=== PATIENT | male | born 1960 | race Caucasian/White ===

== ENCOUNTER 2019-04-30 11:06 | Emergency (ER) | payer OTHER ==
[~2019-04-30] VITALS: Ht 180.3 cm; Wt 136.1 kg
[~2019-04-30 11:06] MED LIST: ACETAMINOPHEN650 M5 PO; ADDERALL 20 MG20 M1 PO; ALLI PO; ASA5UEC PO; ATENOLOL 100MG100 M2 PO; ATENOLOL 25 MG25 M1 PO; AUGMENTIN 875-1 EACH PO; CENTRUM SILVER1 EAC1 PO; DEPAKOTE ER500 MG PO; FLEXERIL PO; NORCO 5-325 TA1 EACH PO; NORVASC 2.5 MG2.5 MG PO; NORVASC5 MG PO; OCUVITE EXTRA1 EACH PO; OXYMETAZOLINE NS; VICODIN 5-5001 EACH PO; ZPAK PO
[2019-04-30 11:42] LABS: ABSOLUTE NEUTROPHILS 6.7 thou/uL (1.4-8.2); BASOPHILS 0.8 % (0.0-2.0); EOSINOPHILS 1.5 % (0.0-3.0); HEMATOCRIT 49.9 % (42.0-52.0); HEMOGLOBIN 17.2 gm/dL (14.0-18.0); LYMPHOCYTES 14.8 % (24.0-44.0); MCH 31.4 pg (26.0-34.0); MCHC 34.6 g/dL (28.0-37.0); MCV 90.8 fL (80.0-100.0); MONOCYTES 9.7 % (1.0-8.0); PLATELET COUNT 246 thou/uL (150-400); POLYS 73.2 % (36.0-66.0); RDW 12.8 % (10.5-14.5); WBC 9.1 thou/uL (4.0-11.0)
[2019-04-30 11:49] LABS: CREATININE 1.4 mg/dL (0.7-1.3); POTASSIUM 3.8 mmol/L (3.5-5.1)
[2019-04-30 11:55] LABS: ALBUMIN 3.9 g/dL (3.4-5.0); TOTAL BILIRUBIN 0.7 mg/dL (<0.1-1.0); TOTAL PROTEIN 7.7 g/dL (6.4-8.2)
[2019-04-30] MEDS ORDERED: BLACK SEED OIL (12:23)
[2019-04-30] MEDS ORDERED: LIPITOR 10 MG10 M1 PO (12:23)
[2019-04-30 12:37] LABS: URINE BLOOD NEGATIVE (Negative); URINE CLARITY CLEAR; URINE COLOR YELLOW; URINE GLUCOSE-RANDOM* NEGATIVE (Negative); URINE KETONES NEGATIVE (Negative); URINE LEUKOCYTES-REFLEX NEGATIVE (Negative); URINE NITRITE-REFLEX NEGATIVE (Negative); URINE PROTEIN (DIPSTICK) TRACE (Negative); URINE SPECIFIC GRAVITY 1.025 (1.005-1.035); URINE UROBILINOGEN 0.2 E.U./dl (0.2-1.0)
[2019-04-30 12:52] LABS: ICTOTEST (BILI CONFIRMATORY) Negative (Negative); URINE BILIRUBIN NEGATIVE (Negative)
[2019-04-30 13:27] VITALS: BP 121/76
--- NOTE | 2019-05-01 08:24 | EKG ---
[address] [address] [place] [address] ELECTROCARDIOGRAM REPORT Name: TAE BURK Room #: DEP Karis#: [id number] Admission: 04/30/19 Attend Phys: Discharge: 04/30/19 Date of : 60 Report #: [id number] THIS REPORT FOR: //name// [facility] ED Test Date: 2019-04-30 Test Time: 12:02:44 Pat Name: TAE BURK Department: Room: Gender: Harnessmaker: [facility] : 1960 Requested By: Guerda Mckee Order Number: [id number] MD: Ray Nichols Measurements Intervals [place] Rate: 86 P: 59 [place]: 164 QRS: 29 QRSD: 83 T: 28 QT: 359 QTc: 430 Interpretive Statements Sinus rhythm Normal tracing Compared to ECG 04/01/2014 13:02:30 No significant changes Electronically Signed On 05-01-2019 8:23:37 BENCH MOVER by Ray Nichols [email or web address] <ELECTRONICALLY SIGNED> By: Ray Nichols MD, [facility] 05/01/19 0823 1202 1202 Ray Nichols MD, FACC /EPI
== END 2019-04-30 13:28 | disposition home or self-care (01) ==
LOC: ER 11:06
PROVIDERS: Physician Assistant
DX: R19.7 Diarrhea, unspecified (principal); R42 Dizziness and giddiness; Z86.73 Personal history of transient ischemic attack (TIA), and cerebral infarction without residual deficits; Z90.49 Acquired absence of other specified parts of digestive tract; Z88.7 Allergy status to serum and vaccine

== ENCOUNTER 2020-12-30 10:09 | Inpatient (IN) | payer OTHER ==
[~2020-12-30] VITALS: Ht 180.3 cm; Wt 123.9 kg
--- NOTE | ~2020-12-30 | EMS ---
[address] [address] EMS Patient Care Report Name: TAE BURK Room #: 170-12 ADM IN M.R.#: [id number] Admission: 12/30/20 Attend Phys: Edwin Jesus MD Discharge: Date of : 60 Report #: [id number] THIS REPORT FOR: //name// Report Transmitted: 12/31/2020 09:37 EMS Care Summary [place], [place]/[facility] Incident [id number] @ 12/30/2020 09:39 Incident Location [address] [place], [place] [id number] Patient TAE BURK Male, 60 Years 1960 Patient Address [address] [place], [place] [id number] Patient History Behavioral/Psychiatric Disorder,Hypertension (HTN),Hyperlipidemia, Patient Allergies No known allergies, Patient Medications Depakote, Atorvastatin, Amlodipine, Chief Complaint Shortness of breath Disposition Transported No Lights/[place] Dispatch Reason Breathing Problem Transported To [facility] Narrative Pt. reports that he has been short of air for several days and now has a cough and diarrhea. He is coughing up green/brownish sputum. He started Keflex a few days ago after being seen by his regular doctor. [address] [address] EMS Patient Care Report Name: TAE BURK Room #: 170-12 ADM IN M.R.#: [id number] Admission: 12/30/20 Attend Phys: Edwin Jesus MD Discharge: Date of : 60 Report #: [id number] Pt. found lying supine in waterbed with no obvious life threats, he is tolerating the low oxygen saturations very well rule out COVID 19 Pt. rolled over to the cot, secured, loaded, vitals and oxygen by cannula at 6 lpm, transported to [place] without changes, pt. able to slide to ED bed, sat up, care transferred to temporary staff accountant with report givn Initial Vitals @09:53P: 112,R: 34,BP: 180/106,Pain: 4/10,GCS: 15,SpO2: 61,Revised Trauma: 11, @10:10P: 110,R: 36,BP: 168/95,GCS: 15,SpO2: 81,Revised Trauma: 11, Assessments @10:17MENTAL:Event Oriented,Place Oriented,Time Oriented,Person Oriented,SKIN:HEENT:LUNG SOUNDS:General: Diarrhea,ABDOMEN:General: Diarrhea,PELVIS//GI:EXTREMITIES:PULSE:NEURO: Impression COVID-19 - Suspected - no known exposure Timeline 09:37,Call Received 09:37,Dispatch Notified 09:39,Dispatched 09:39,En Route 09:51,On Scene 09:52,At Patient 09:53,BP: 180/106 M,PULSE: 112,RR: 34 R,SPO2: 61 Ox,ETCO2: ,BG: ,PAIN: 4,GCS: 15, 09:59,Depart Scene 10:06,At Destination 10:10,BP: 168/95 M,PULSE: 110,RR: 36 R,SPO2: 81 Ox,ETCO2: ,BG: ,PAIN: ,GCS: 15, 10:36,Call Closed Disclaimer v1.1 Copyright 2020 [employer] This EMS Care Summary contains data elements from the applicable legal record (which may be displayed differently). It is designed to provide pertinent information for the following purposes: continuity of care, clinical quality, and state data reporting. The complete legal record is available to ED staff and administrators of the receiving hospital in [employer] Patient Tracker. All data is provided "as is."
--- NOTE | ~2020-12-30 | HC ---
[facility] [place] [address] CONSULTATION Name: TAE BURK Room #: 355-P [facility] IN M.R.#: [id number] Admission: 12/30/20 Attend Phys: Edwin Jesus MD Discharge: Date of : 60 Report #: [id number] THIS REPORT FOR: cc: Wilman Blunt MD, Steven E. MD Smithson, David G. MD ~ DATE OF SERVICE: 01/19/2021 HISTORY OF PRESENT ILLNESS: The patient is a 60-year-old white male admitted with obesity, respiratory failure secondary to COVID-19 pneumonia. He has had ARDS, severe sepsis, encephalopathy, hypertension, transaminitis. He has been on high flow oxygen and BiPAP. He has improved dramatically. He is now on 6 liters nasal cannula. Infectious Disease continues to be involved. He is in COVID isolation. He continues on the IV Solu-Medrol. He has been feeling better. We are seeing him in rehabilitation medicine consultation. PAST MEDICAL HISTORY: Includes hypertension, elevated lipids, prior CVA 1995, morbid obesity, BMI of 40.6. MEDICATIONS: Please see the full medication listing. SOCIAL HISTORY: Lives in a house alone, premorbid community ambulator, 2 steps from the front. No steps from the garage. He is currently an unemployed computer help desk specialist noted to have assistance from his parents and children per report. REVIEW OF SYSTEMS: No complaints of any current chest pain, shortness of breath or abdominal discomfort. Some cough that he notes is improving. PHYSICAL EXAMINATION: GENERAL: He is a pleasant, overweight 60-year-old male in no obvious distress. VITAL SIGNS: Last recorded temperature 97.6, pulse 74, respirations 21, blood pressure 122/76. The patient is alert. HEENT: Appeared to be benign. NEUROLOGIC: Cranial nerves are grossly intact. Facies are symmetric. He is on 6 liters nasal cannula. He has functional range of motion of both upper extremities, strength is a grade 4+/5. Lower extremities, he is able to move both lower extremities, no obvious focal weakness. No obvious distal lower extremity edema. He is getting up by himself to the commode and to the bedside chair. ASSESSMENT: A 60-year-old male with the following problem list: 1. Respiratory failure secondary to COVID-19 pneumonia. 2. Acute respiratory failure. He is improving with some improving O2. 3. Hypertension. 4. Transaminitis noted to be resolving. [facility] [address] [place] [address] CONSULTATION Name: TAE BUKR Room #: 355-P [facility] IN .R.#: [id number] Admission: 12/30/20 Attend Phys: Edwin Jesus MD Discharge: Date of : 60 Report #: [id number] PLAN: He is moving better functionally and O2 needs are decreasing. He may be able to discharge directly home if his O2 needs improve. We will continue to follow, but do not see that he would need an acute inpatient rehabilitation stay at this point and again would anticipate that he should be able to discharge directly home if his oxygen needs improve. He is doing quite well with his functional mobility and is getting up by himself already to the bedside chair and to the commode. Thank you for asking us to assist in this patient's care. By: 0905 1256 Micha Young MD /nt
[2020-12-30 10:09] VITALS: BP 150/102
[~2020-12-30 10:09] MED LIST changes: +BLACK SEED OIL; +LIPITOR 10 MG10 M1 PO
[2020-12-30 10:33] LABS: BE(vivo) 3.4 mmol/L (-2 to +3); PCO2 33.7 mmHg (35.0-45.0); PO2 56.6 mmHg (80.0-100.0); pH 7.505 (7.360-7.450); sO2 92.1 % (92.0-98.0)
[2020-12-30 10:35] LABS: ABSOLUTE NEUTROPHILS 7.2 thou/uL (1.4-8.2); BASOPHILS 0.4 % (0.0-2.0); EOSINOPHILS 0.1 % (0.0-3.0); HEMATOCRIT 46.5 % (42.0-52.0); HEMOGLOBIN 15.7 gm/dL (14.0-18.0); LYMPHOCYTES 8.6 % (24.0-44.0); MCH 30.5 pg (26.0-34.0); MCHC 33.8 g/dL (28.0-37.0); MCV 90.2 fL (80.0-100.0); MONOCYTES 11.1 % (1.0-8.0); PLATELET COUNT 373 thou/uL (150-400); POLYS 79.8 % (36.0-66.0); RBC 5.15 mil/uL (4.50-6.00); RDW 12.8 % (10.5-14.5)
[2020-12-30 10:44] LABS: CALCIUM 8.6 mg/dL (8.5-10.1); CREATININE 1.1 mg/dL (0.7-1.3)
--- NOTE | 2020-12-30 11:00 | EKG ---
[address] [place] [place] [address] ELECTROCARDIOGRAM REPORT Name: TAE BURK Room #: [facility] M.R.#: [id number] Admission: Attend Phys: Discharge: Date of : 60 Report #: [id number] [facility] ED Test Date: 2020-12-30 Test Time: 10:19:12 Pat Name: TAE BURK Department: Room: Gender: Purchaser: PAT : 1960 Requested By: Zulema Urena Order Number: [id number] MD: Tiburcio Zhang Measurements Intervals [place] Rate: 112 P: 38 GA: 144 QRS: 25 QRSD: 82 T: 2 QT: 359 QTc: 490 Interpretive Statements Sinus tachycardia Left atrial enlargement Borderline prolonged QT interval Compared to ECG 04/30/2019 12:02:44 Atrial abnormality now present Sinus rhythm no longer present Electronically Signed On 12-30-2020 11:00:33 CDT by Tiburcio Zhang [email or web address] <ELECTRONICALLY SIGNED> By: Tiburcio Zhang MD, [facility] 12/30/20 1100 1019 1019 Tiburcio Zhang MD, FACC /EPI
[2020-12-30 14:30] LABS: ALBUMIN 2.8 g/dL (3.4-5.0); DIRECT BILIRUBIN 0.4 mg/dL (<0.1-0.2); TOTAL BILIRUBIN 1.2 mg/dL (0.2-1.0); TOTAL PROTEIN 7.3 g/dL (6.4-8.2)
--- NOTE | 2020-12-30 22:38 | NUR ---
HOSPITALIST CALLED IN REGARDS TO PT O2 SAT
[2020-12-30 23:43] LABS: BE(vivo) 3.6 mmol/L (-2 to +3); HCO3 26.9 mmol/L (22.0-26.0); sO2 90.4 % (92.0-98.0)
[2020-12-30 23:44] LABS: PO2 54.1 mmHg (80.0-100.0)
[2020-12-31] VITALS (13 sets, daily range): BP systolic 117–144; BP diastolic 62–79
[2020-12-31 05:17] LABS: ABSOLUTE NEUTROPHILS 7.4 thou/uL (1.4-8.2); BASOPHILS 0.4 % (0.0-2.0); HEMATOCRIT 42.7 % (42.0-52.0); HEMOGLOBIN 15.1 gm/dL (14.0-18.0); LYMPHOCYTES 5.5 % (24.0-44.0); MCH 31.7 pg (26.0-34.0); MCHC 35.4 g/dL (28.0-37.0); MCV 89.6 fL (80.0-100.0); MONOCYTES 7.5 % (1.0-8.0); PLATELET COUNT 352 thou/uL (150-400); POLYS 86.6 % (36.0-66.0); RBC 4.77 mil/uL (4.50-6.00); RDW 13.1 % (10.5-14.5); WBC 8.6 thou/uL (4.0-11.0)
--- NOTE | 2020-12-31 05:44 | NUR ---
PT'S DAUGHTER UPDATED ON PT'S STATUS AND POC. ALL QUESTIONS ANSWERED.
[2020-12-31 06:03] LABS: ALBUMIN 2.4 g/dL (3.4-5.0); CALCIUM 8.5 mg/dL (8.5-10.1); CREATININE 1.2 mg/dL (0.7-1.3); DIRECT BILIRUBIN 0.3 mg/dL (<0.1-0.2); MAGNESIUM 2.2 mg/dL (1.8-2.4); PHOSPHORUS 3.2 mg/dL (2.5-4.9); POTASSIUM 4.2 mmol/L (3.5-5.1); TOTAL BILIRUBIN 0.9 mg/dL (0.2-1.0); TOTAL PROTEIN 6.7 g/dL (6.4-8.2)
--- NOTE | 2020-12-31 08:33 | HC ---
[facility] [place] [address] CONSULTATION Name: TAE BURK Room #: 170-12 ADM IN M.R.#: [id number] Admission: 12/30/20 Attend Phys: Edwin Jesus MD Discharge: Date of : 60 Report #: [id number] THIS REPORT FOR: cc: Wilman Blunt MD, Steven E. MD Barry, Joseph W. MD ~ DATE OF SERVICE: 12/30/2020 INFECTIOUS DISEASE CONSULTATION ATTENDING PHYSICIAN: Dr. Jesus. REASON FOR EVALUATION: COVID-19 infection, complicated by pneumonitis, respiratory failure with early ARDS. HISTORY OF PRESENT ILLNESS: The patient examined. This is a 60-year-old gentleman with a previous history of stroke, who has been ill for roughly 9 days. He noted onset of intermittent cough, some dyspnea, especially with activity. He is not certain of fevers, but felt some chills. He had some diminished p.o. intake, mostly profound weakness. He was suspicious he may had some sort of a viral infection. Ultimately, this morning, he was feeling so poorly that he called EMS. He was found to have an oxygen saturation of 68%, placed on 15 liters with some improvement. He is now seen in the Emergency Room, he was confirmed to have coronavirus positive testing. ABGs, initially pH 7.505, pCO2 of 33.7, pO2 of 56.6 on a nonrebreather. Chest x-ray noted bilateral infiltrates. Lactic acid was borderline elevated at 2.0. Procalcitonin was less than 0.05. He had moderately elevated hepatic transaminases with AST of 107, ALT of 127. He was now on Optiflow 54 liters per minute, FiO2 of 97%. Cultures have been collected, they are in progress. He is empirically started on therapy with azithromycin and ceftriaxone empirically as well as remdesivir. ALLERGIES: LISTED TO INFLUENZA VACCINE. CURRENT MEDICATIONS: Include zinc, cholecalciferol, ascorbic acid, azithromycin, ceftriaxone, methylprednisolone, remdesivir, ivermectin. PAST MEDICAL HISTORY: As described above, previous CVA and cholecystectomy. SOCIAL HISTORY: Nonsmoker. No illicit drug use. Occasional ethanol. FAMILY HISTORY: Noncontributory. REVIEW OF SYSTEMS: Otherwise, unremarkable with the exception of the above. PHYSICAL EXAMINATION: [address] [address] CONSULTATION Name: TAE BURK Room #: 170-12 [facility] IN M.R.#: [id number] Admission: 12/30/20 Attend Phys: Edwin Jesus MD Discharge: Date of : 60 Report #: [id number] GENERAL: He appears ill, not overtly toxic, moderate distress secondary to dyspnea. He is maintained on supplemental oxygen via Optiflow. Generally, he is lucid. VITAL SIGNS: Temperature 101.2, pulse 104, respirations 20, blood pressure 171/97. SKIN: Warm, dry, no rashes. HEENT: Normocephalic. Extraocular muscles intact. NECK: Supple. LUNGS: Few scattered coarse breath sounds, somewhat diminished. HEART: Tachycardic. Appears to be regular. No appreciable murmur. ABDOMEN: Obese, distended, firm, nontender. EXTREMITIES: No cyanosis. GENITOURINARY AND RECTAL: Deferred. LABORATORY DATA: As described above, D-dimer 0.95. Hepatic function: AST of 107, ALT 127, albumin of 2.8, total protein 7.3. Lactic acid decreased to 1.4. Electrolytes: Sodium 131, potassium 4.0, chloride 98, bicarbonate 28, anion gap of 5, BUN and creatinine 14 and 1.1. CBC: White count of 9.0, H and H is 15.7 and 46.5, platelets of 373. ABGs, pH 7.505, pCO2 of 33.7, pO2 of 56.6 on a nonrebreather. ASSESSMENT AND PLAN: COVID-19 infection, complicated by pneumonitis, respiratory failure with early acute respiratory distress syndrome. We will continue empiric antibacterial therapy given the duration of illness roughly 9-10 days, would be concerned about secondary bacterial pneumonitis. In addition to that in the window to start remdesivir, corticosteroids, baricitinib. Continue supportive care with oxygen therapy. Noted plans for ICU level of care, I think this is appropriate, would not be surprised if he clinically deteriorates. Thank you, we will follow. <ELECTRONICALLY SIGNED> By: John Stout MD 12/31/20 0833 1637 [id number] John Stout MD /nt
--- NOTE | 2020-12-31 18:50 | NUR ---
PT ARRIVED FROM ER VIA CART. PT TRASNFERED TO ICU BED, ATTACHED TO MONITORS AND ASSESSED PER ICU PROTOCOL. PT ON BIPAP 100% SATING 94%. PT A&OX4. ADMISSION HISTORY/ASSESSMENT COMPLETE. DR. WEATHERS CALLED AND UPDATED ON PTS ROOM NUMBER AND CONDITION, NO ORDERS OBTAINED. CIARA (MOM) CALLED AND GIVEN SECURITY CODE AND UNIT PHONE NUMBER, UPDATED ON PTS CONDITION AND ALL QUESTIONS ANSWERED.
[2021-01-01] VITALS (22 sets, daily range): BP systolic 103–167; BP diastolic 59–103
--- NOTE | 2021-01-01 10:00 | NUR ---
ASSUMMED CARE OF THIS PATIENT FROM THE NIGHT NURSE, CAROLEE JACKMAN. O2 DECREASE TO 80%. PATIENT NOTED TO DESAT INTO THE LOWER 80'S, RESP RATE STABLE UNLESS HE IS ANXIOUS. ABLE TO RECOVER WITHIN A FEW MOMENTS. WILL CONTINUE TO MONITOR.
--- NOTE | 2021-01-01 12:09 | NUR ---
A RIGHT UPPER ARM BIOFLO MIDLINE WAS PLACED PER HOSPITAL POLICY AFTER A VERBAL CONSENT WAS OBTAINED. DISCUSSED RISKS OF DVT AND INFECTION. THE PATIENT VERBALIZED UNDERSTANDING. THE LINE WAS TRIMMED TO 15CM AND ADVANCED WITHOUT DIFFICULTY. LINE SECURED AND RELEASED FOR USE
[2021-01-01 12:57] LABS: ALBUMIN 2.4 g/dL (3.4-5.0); CALCIUM 8.5 mg/dL (8.5-10.1); CREATININE 1.1 mg/dL (0.7-1.3); DIRECT BILIRUBIN 0.2 mg/dL (<0.1-0.2); PHOSPHORUS 3.8 mg/dL (2.5-4.9); POTASSIUM 4.2 mmol/L (3.5-5.1); TOTAL BILIRUBIN 0.7 mg/dL (0.2-1.0); TOTAL PROTEIN 6.4 g/dL (6.4-8.2)
[2021-01-02] VITALS (22 sets, daily range): BP systolic 104–165; BP diastolic 58–87
--- NOTE | 2021-01-02 03:24 | NUR ---
PT PROGRESSING SLOWLY TOWARDS D/C GOALS. VSS. AFEBRILE. SATS 95% ON CURRENT BIPAP SETTINGS. LUNGS SOUND MAINLY CLEAR SLIGHTLY DIMINISHED AT BASES. NONPRODUCTIVE COUGH NOTED. INFORMED PT OF NEED FOR SPUTUM. PT HAD MODERATE AMTS BLOODY DRAINAGE AT BEGINNING OF SHIFT TO RIGHT ML SITE. ATTEMPTED TO CHANGES DRESSING AND ML PULLED OUT . LG AMTS BLOODY DRAINAGE NOTED. PRESSURE APPLIED AND PRESSURE DRESSING APPLIED X2. NOTIFIED LANDSCAPE ARCHITECT AND PLANNER. HG DRAWN=15. BLEEDING HAS STOPPED. HELD TONIGHTS DOSE OF LOVENOX ORDERED. SHARP PLACED SINCE PT PT KEPT ATTEMPTING TO GET OOB DUE TO URGE TO URINATE AND NEED TO KEEP ON BR TONIGHT DUE TO BLEEDING AND SOA WITH EXERTION. PT HAS BEEN RESTING QUIETLY TONIGHT NO S/S DISTRESS ON CURRENT BIPAP SETTINGS.
[2021-01-02 05:37] LABS: HEMATOCRIT 43.8 % (42.0-52.0); HEMOGLOBIN 15.5 gm/dL (14.0-18.0); MCH 32.1 pg (26.0-34.0); MCHC 35.5 g/dL (28.0-37.0); MCV 90.5 fL (80.0-100.0); RBC 4.84 mil/uL (4.50-6.00); RDW 13.1 % (10.5-14.5)
[2021-01-02 05:44] LABS: ALBUMIN 2.6 g/dL (3.4-5.0); CALCIUM 8.6 mg/dL (8.5-10.1); CREATININE 1.2 mg/dL (0.7-1.3); DIRECT BILIRUBIN 0.3 mg/dL (<0.1-0.2); PHOSPHORUS 4.2 mg/dL (2.5-4.9); TOTAL BILIRUBIN 0.8 mg/dL (0.2-1.0)
[2021-01-02 05:50] LABS: PLATELET COUNT 439 thou/uL (150-400)
--- NOTE | 2021-01-02 06:16 | NUR ---
PT ALERT X4 THIS AM. ANXIOUS TO BE GETTING THINGS DONE TODAY. BP MODERATELY ELEVATED THIS AM 165/87. HYDRALAZINE GIVEN IV. BP WENT DOWN SLIGHTLY. UO 1200 TONIGHT. MAINTAINED SATS 95-96% ON BIPAP ALL NIGHT.NO FURTHER BLEEDING NOTED TONIGHT.
--- NOTE | 2021-01-02 11:56 | NUR ---
Nutrition: Pt admitted with COVID. Assessed for low BMI - however, pt reported wt of 300#, wt 295# yday. Today, wt is recorded as 131# but should be 131kg (288#). I spoke with RN and confirmed this wt. RN stated pt is eating well. He is on bipap. BG 200, alb 2.6. Chopped diet is ordered. Low to mild nutrition risk at this time. Pt does not have low BMI.
--- NOTE | 2021-01-02 13:58 | NUR ---
PATIENT SGTARTED ON HIGH LEA OXYGEN EARLIER AND HE HAS TOLERATED WELL. HE IS CURRENTLY SATING ABOVE 90% WITH RATE ABOUT 20. HE IS ALERT ORIENTED X4. HE DOES DENIES PAIN. WILL CONT PLAN OF CARE.
--- NOTE | 2021-01-02 16:38 | NUR ---
PT STARTING TO BE MUCH MORE AGITATED. WAS PUT BACK ON BIPAP AND HE KEEPS TAKING OFF MASK, TAking of vital equipment. Redirected to no avail notified.
[2021-01-02 17:36] LABS: ABSOLUTE NEUTROPHILS 13.2 thou/uL (1.4-8.2)
[2021-01-02 17:37] LABS: BURR CELLS FEW
[2021-01-02 17:43] LABS: BE(vivo) 3.3 mmol/L (-2 to +3); HCO3 26.3 mmol/L (22.0-26.0); PCO2 35.4 mmHg (35.0-45.0); PO2 53.6 mmHg (80.0-100.0); pH 7.489 (7.360-7.450); sO2 90.4 % (92.0-98.0)
[2021-01-03] VITALS (26 sets, daily range): BP systolic 114–160; BP diastolic 55–83
[2021-01-03 05:42] LABS: HEMATOCRIT 43.8 % (42.0-52.0); HEMOGLOBIN 15.4 gm/dL (14.0-18.0); MCH 31.6 pg (26.0-34.0); MCHC 35.1 g/dL (28.0-37.0); RBC 4.86 mil/uL (4.50-6.00); RDW 12.8 % (10.5-14.5); WBC 17.9 thou/uL (4.0-11.0)
[2021-01-03 06:05] LABS: CALCIUM 8.6 mg/dL (8.5-10.1); CREATININE 1.3 mg/dL (0.7-1.3); MAGNESIUM 2.6 mg/dL (1.8-2.4); POTASSIUM 4.8 mmol/L (3.5-5.1)
[2021-01-03 06:10] LABS: ALBUMIN 2.7 g/dL (3.4-5.0); CALCIUM 8.8 mg/dL (8.5-10.1); CREATININE 1.4 mg/dL (0.7-1.3); DIRECT BILIRUBIN 0.2 mg/dL (<0.1-0.2); PHOSPHORUS 4.8 mg/dL (2.6-4.7); POTASSIUM 4.4 mmol/L (3.5-5.1); TOTAL BILIRUBIN 0.8 mg/dL (0.2-1.0); TOTAL PROTEIN 6.8 g/dL (6.4-8.2)
--- NOTE | 2021-01-03 07:33 | NUR ---
assumed pt care at 1900, pt is awake, follows commands, confused at times, easy to rediorect, oriented x3-4, remained on bipap overnight, fio2 85%, sb on tele, lightly sedated on precedex, assessments as charted, no events overnight, vss, passed on report
--- NOTE | 2021-01-03 19:59 | NUR ---
PATIENT IS SLOWLY PROGRESSING TOWARDS OUTCOME GOALS HE HAS BEEN ON OPTIFLOW THROUGHOUT THE DAY WITH O2 SATS IN THE 90'S. PRECEDEX DRIP CONTINUES. PATIENT RESTING, CALM AND COOPERATIVE. PLEASE REFER TO ASSESSMENTS.
[2021-01-04] VITALS (18 sets, daily range): BP systolic 121–182; BP diastolic 34–95
[2021-01-04 02:05] LABS: GLYCOHEMOGLOBIN (HGB A1C) 6.4 % (4.8-5.6)
[2021-01-04 04:06] LABS: HIV ANTIBODY Non Reactive (Non Reactive)
[2021-01-04 06:03] LABS: HEMATOCRIT 45.2 % (42.0-52.0); HEMOGLOBIN 14.9 gm/dL (14.0-18.0); MCHC 32.9 g/dL (28.0-37.0); RBC 4.96 mil/uL (4.50-6.00); RDW 12.8 % (10.5-14.5); WBC 13.2 thou/uL (4.0-11.0)
[2021-01-04 06:05] LABS: CALCIUM 8.6 mg/dL (8.5-10.1); CREATININE 1.3 mg/dL (0.7-1.3); MAGNESIUM 2.7 mg/dL (1.8-2.4); POTASSIUM 4.1 mmol/L (3.5-5.1)
--- NOTE | 2021-01-04 10:35 | NUR ---
0815-PT HAVING PANIC ATTACK.SATS ~.77%, OPTIFLOW 55L, .80%. I CAN'T BREATHE,EXTREMELY RESTLESS,VERY CONFUSED. PLACED ON BIPAP, 13/12,RATE 14, 90%. PRECEDEX INC'D FOR ANXIETY. TIME SPENT W PT,CALMING & REASSURANCE GIVEN. PT FINALLY SETTLED & WENT TO SLEEP.--VW 8909- IN.--VW
--- NOTE | 2021-01-04 15:27 | NUR ---
Discuss during los and unit rounds. Unable to visited radha, r/t on BIPAP and in Isolation. Cm tried call his mom back [employer] [phone], no answer. He SOA with activity. Passed on that he is A O x self with confusion. Mom is asking for 2 Dr Prieto on paper saying he is unable to handle his affairs currently and is in the ICU. Received message from his dad Juancho [phone] and from Basim gomes financial aid officer [phone]. Will cont. following as needed for dc needs.
[2021-01-05] VITALS (24 sets, daily range): BP systolic 102–165; BP diastolic 52–84
[2021-01-05 06:20] LABS: HEMATOCRIT 44.1 % (42.0-52.0); HEMOGLOBIN 14.9 gm/dL (14.0-18.0); MCH 30.9 pg (26.0-34.0); MCHC 33.9 g/dL (28.0-37.0); PLATELET COUNT 353 thou/uL (150-400); RBC 4.84 mil/uL (4.50-6.00); RDW 13.1 % (10.5-14.5); WBC 15.7 thou/uL (4.0-11.0)
[2021-01-05 06:37] LABS: ALBUMIN 2.3 g/dL (3.4-5.0); CALCIUM 8.7 mg/dL (8.5-10.1); CREATININE 1.2 mg/dL (0.7-1.3); DIRECT BILIRUBIN 0.2 mg/dL (<0.1-0.2); MAGNESIUM 2.8 mg/dL (1.8-2.4); PHOSPHORUS 4.9 mg/dL (2.6-4.7); POTASSIUM 4.7 mmol/L (3.5-5.1); TOTAL BILIRUBIN 0.9 mg/dL (0.2-1.0); TOTAL PROTEIN 5.8 g/dL (6.4-8.2)
[2021-01-05 07:16] LABS: ABSOLUTE NEUTROPHILS 14.6 thou/uL (1.4-8.2)
[2021-01-05 07:17] LABS: ANISOCYTOSIS SLIGHT
--- NOTE | 2021-01-05 11:32 | 2DMMODE ---
[address] [address] D/M-MODE ECHOCARDIOGRAM Name: TAE BURK Room #: 245-P ADM IN M.R.#: [id number] Admission: 12/30/20 Attend Phys: Edwin Jesus MD Discharge: Date of : 60 Report #: [id number] THIS REPORT FOR: cc: Wilman Blunt MD, Steven E. MD Park, Jin S. MD ~ APPROVED REPORT Study performed: 01/05/2021 10:55:43 EXAM: Comprehensive 2D, Doppler, and color-flow Echocardiogram Patient Location: ICU Room #: [facility] Status: routine BSA: 2.46 HR: 64 bpm BP: 131/72 mmHg Rhythm: NSR Other Information Study Quality: Technically Limited Technically limited study due to inability to position patient, uncooperative patient. Indications Dyspnea Hypertension/HDD Covid 19 Left Ventricle The left ventricle is normal size. There is normal LV segmental wall motion. There is normal left ventricular wall thickness. The left ventricular systolic function is normal. LVEF is 55-60%. Right Ventricle The right ventricle is normal size. The right ventricular systolic function is normal. Atria The left atrium size is normal. The right atrium size is normal. Aortic Valve The aortic valve is normal in structure. No aortic regurgitation is [address] [address] 2 D/M-MODE ECHOCARDIOGRAM Name: TAE BURK Room #: 245-P ADM IN M.R.#: [id number] Admission: 12/30/20 Attend Phys: Edwin Jesus, Discharge: Date of : 60 Report #: [id number] present. There is no aortic valvular stenosis. Mitral Valve The mitral valve is normal in structure. There is no mitral valve regurgitation noted. No evidence of mitral valve stenosis. Tricuspid Valve The tricuspid valve is normal in structure. There is no tricuspid valve regurgitation noted. Pulmonic Valve The pulmonary valve is normal in structure. There is no pulmonic valvular regurgitation. Great Vessels The aortic root is normal in size. IVC is not well visualized. Pericardium There is no pericardial effusion. <Conclusion> The left ventricle is normal size. There is normal left ventricular wall thickness. The left ventricular systolic function is normal. The right ventricle is normal size. The left atrium size is normal. The aortic valve is normal in structure. There is no mitral valve regurgitation noted. <ELECTRONICALLY SIGNED> By: George Aceves MD 01/05/21 1132 113 31 George Aceves MD /INF
--- NOTE | 2021-01-05 13:39 | NUR ---
ASSUMMED CARE AT 0700 FROM THE NIGHT NURSE MATTHEW JACKMAN. BEDSIDE ECHO DONE THIS AM. PATIENT ABLE TO FEED SELF WITH O2 SAT STAYING IN THE 90'S AND NO COUGHING NOTED
--- NOTE | 2021-01-05 15:24 | NUR ---
Dr letter completed and hospitalist signed, still needing Pulmonary Md to sign and then radha mom and dad can pick it up. Will cont following as needed for dc needs. Spoke with his mom clarence via phone call and she will come up to get the letter tomorrow.
--- NOTE | 2021-01-05 17:30 | NUR ---
SPOKE WITH THE PATIENT'S MOTHER, CIARA AND UPDATED HER ON THE PATIENT'S STATUS, POC. QUESTIONS ADDRESSED AND REASSURANCE GIVEN.
--- NOTE | 2021-01-05 18:41 | NUR ---
PATIENT IS PROGRESSING SLOWLY TOWARDS OUTCOME GOALS. PLEASE REFER TO ASSESSMENT NOTES.
[2021-01-06] VITALS (22 sets, daily range): BP systolic 87–184; BP diastolic 49–98
[2021-01-06 10:04] LABS: ABSOLUTE NEUTROPHILS 15.8 thou/uL (1.4-8.2); BASOPHILS 0.2 % (0.0-2.0); HEMATOCRIT 48.2 % (42.0-52.0); HEMOGLOBIN 16.4 gm/dL (14.0-18.0); LYMPHOCYTES 1.6 % (24.0-44.0); MCH 30.3 pg (26.0-34.0); MCV 89.2 fL (80.0-100.0); MONOCYTES 2.9 % (1.0-8.0); PLATELET COUNT 319 thou/uL (150-400); POLYS 95.3 % (36.0-66.0); RDW 12.4 % (10.5-14.5); WBC 16.6 thou/uL (4.0-11.0)
[2021-01-06 10:25] LABS: ALBUMIN 2.7 g/dL (3.4-5.0); CALCIUM 8.3 mg/dL (8.5-10.1); DIRECT BILIRUBIN 0.3 mg/dL (<0.1-0.2); PHOSPHORUS 3.9 mg/dL (2.5-4.9); POTASSIUM 4.9 mmol/L (3.5-5.1); TOTAL BILIRUBIN 1.1 mg/dL (0.2-1.0); TOTAL PROTEIN 6.2 g/dL (6.4-8.2)
--- NOTE | 2021-01-06 12:05 | NUR ---
Spoke with his mom clarence and she will coal picker copy of letter from security office today.
--- NOTE | 2021-01-06 17:22 | NUR ---
Pt asking if he can get COVID vaccine while inpatient. RN informed pt he needed to wait until he was fully recovered before talking to his primary care about getting the first dose.
[2021-01-07] VITALS (23 sets, daily range): BP systolic 131–196; BP diastolic 76–98
[2021-01-07 05:06] LABS: BASOPHILS 0.1 % (0.0-2.0); HEMOGLOBIN 14.6 gm/dL (14.0-18.0); LYMPHOCYTES 2.2 % (24.0-44.0); MCHC 34.8 g/dL (28.0-37.0); MONOCYTES 3.8 % (1.0-8.0); PLATELET COUNT 380 thou/uL (150-400); POLYS 93.9 % (36.0-66.0); RBC 4.72 mil/uL (4.50-6.00); RDW 12.8 % (10.5-14.5); WBC 17.1 thou/uL (4.0-11.0)
[2021-01-07 06:01] LABS: ALBUMIN 2.4 g/dL (3.4-5.0); CREATININE 0.9 mg/dL (0.7-1.3); DIRECT BILIRUBIN 0.3 mg/dL (<0.1-0.2); PHOSPHORUS 2.8 mg/dL (2.5-4.9); POTASSIUM 4.8 mmol/L (3.5-5.1); TOTAL BILIRUBIN 1.1 mg/dL (0.2-1.0); TOTAL PROTEIN 5.5 g/dL (6.4-8.2)
[2021-01-07 09:01] LABS: T-SPOT.TB Negative
--- NOTE | 2021-01-07 09:34 | NUR ---
Followup: continued treatment for COVID+ pneumonia. Will be transferring out ICU possibly today. Tolerating diet eating 50-100% of meals. Wts stable. BG elevated and aggravated by steroids so will add carb control to diet order. Remains low nutrition risk
--- NOTE | 2021-01-07 15:31 | NUR ---
Per attending in AM review of case: Attending notes anticipated time when able to be off Optiflow during the day and bipap at HS may be able to move off the unit. Pulmonology review notes continuation of BIPAP and confusion and still need for Precedex for such. Mother Swetha at [phone] or [phone] has been involved with care and once deemed able to participate in therapy evaluations; CM will follow for identified discharge needs.
--- NOTE | 2021-01-07 18:36 | NUR ---
PATIENT PROGRESSING TOWARDS THE PLAN OF CARE EVIDENCED BY NO NEW INCREASED OXYGEN REQUIREMENTS. MS TELE TRANSFER ORDERS.
--- NOTE | 2021-01-07 20:39 | NUR ---
PT IN SEMI FOWLERS POSITION IN BED. WATCHING TV. PT VERY TALKATIVE, NOT SOA BUT FREQUENT DRY COUGHING. OPTI LEA INTACT. LUNGS WHEEZES AND BASES DIMINISHED. EDEMA BLE, PALE SKIN TONE, BS HYPOACTIVE. PT REQUESTED LOVENOX BE IN ARM, ABD SORE. PT DECLINED HS FSBS. STATED HE IS NO LONGER DRINKING MANY PEPSI'S AND HE IS TIRED OF BEING PRICKED. PT TALKING ABOUT HIS FAMILY, FRIENDS, TRANSFERING TO ANOTHER FLOOR AND GETTING TO WEAR SHORTS. SHARP TO DD. DANAY MIDLINE SCANT LEAK AT INSERTION SITE, CHANGED ON DAYSHI. BED ALARM ON.
[2021-01-08] VITALS (13 sets, daily range): BP systolic 150–199; BP diastolic 77–104
--- NOTE | 2021-01-08 01:00 | NUR ---
Assumed patient care. Patient asleep, alert and orinted on BIPAP at this time.
[2021-01-08 05:02] LABS: ABSOLUTE NEUTROPHILS 16.5 thou/uL (1.4-8.2); BASOPHILS 0.3 % (0.0-2.0); HEMATOCRIT 42.8 % (42.0-52.0); HEMOGLOBIN 14.4 gm/dL (14.0-18.0); MCH 30.7 pg (26.0-34.0); MCHC 33.6 g/dL (28.0-37.0); MCV 91.1 fL (80.0-100.0); MONOCYTES 4.8 % (1.0-8.0); PLATELET COUNT 416 thou/uL (150-400); POLYS 92.9 % (36.0-66.0); RBC 4.69 mil/uL (4.50-6.00); RDW 12.8 % (10.5-14.5); WBC 17.7 thou/uL (4.0-11.0)
[2021-01-08 05:18] LABS: ALBUMIN 2.4 g/dL (3.4-5.0); CALCIUM 8.1 mg/dL (8.5-10.1); CREATININE 0.9 mg/dL (0.7-1.3); DIRECT BILIRUBIN 0.3 mg/dL (<0.1-0.2); POTASSIUM 4.8 mmol/L (3.5-5.1); TOTAL PROTEIN 5.4 g/dL (6.4-8.2)
--- NOTE | 2021-01-08 06:38 | NUR ---
Patient progressing slowly towards outcome goals. Blood pressure improved after PRN Hydralazine. Oxygenation optimal with current vent settings. Denies pain. No BM, patient declined to take anything now.
--- NOTE | 2021-01-08 18:00 | NUR ---
PT IS PROGRESSING TOWARDS PLAN OF CARE EVIDENCED BY NO NEED FOR ADVANCED MECHANICAL VENTILATION. PT IS ADJUSTING WELL TO HIGH FLOW 02 (55LPM AT 60%) WITH SPO2 ABOVE 95%.
[2021-01-09] VITALS (9 sets, daily range): BP systolic 133–173; BP diastolic 80–101
[2021-01-09 04:02] LABS: ABSOLUTE NEUTROPHILS 17.2 thou/uL (1.4-8.2); BASOPHILS 0.3 % (0.0-2.0); HEMATOCRIT 43.2 % (42.0-52.0); HEMOGLOBIN 14.4 gm/dL (14.0-18.0); LYMPHOCYTES 2.3 % (24.0-44.0); MCH 30.4 pg (26.0-34.0); MCHC 33.4 g/dL (28.0-37.0); MCV 90.9 fL (80.0-100.0); MONOCYTES 3.4 % (1.0-8.0); PLATELET COUNT 392 thou/uL (150-400); RBC 4.75 mil/uL (4.50-6.00); WBC 18.3 thou/uL (4.0-11.0)
[2021-01-09 04:18] LABS: ALBUMIN 2.4 g/dL (3.4-5.0); CALCIUM 8.2 mg/dL (8.5-10.1); DIRECT BILIRUBIN 0.3 mg/dL (<0.1-0.2); PHOSPHORUS 3.6 mg/dL (2.6-4.7); TOTAL BILIRUBIN 1.1 mg/dL (0.2-1.0); TOTAL PROTEIN 5.6 g/dL (6.4-8.2)
--- NOTE | 2021-01-09 19:04 | NUR ---
PT IS PROGRESSING TO THE PLAN OF CARE EVIDENCED BY NO NEW INCREASED NEED FOR OXYGEN. PT STILL AWAITING BED ON THE FLOOR.
--- NOTE | 2021-01-10 01:23 | NUR ---
PT VOICE FRUSTRATIONS WITH GETTING FSBC CHECKS, STATE THAT HIS FINGER TIPS ARE SORE AND HE REFUSES TO GET ANY MORE FINGERSTICKS. WAS PLACED ON BIPAP EARLY DURING THE NIGHT. MELANTONIN GIVEN PER REQUEST. DID NOT GO ON BIPAP THE NIGHT BEFORE, REMAINED ON OPTI-LEA, DESAT OFTEN DURING THE NIGHT IN THE HIGH 80'S, WHEN ON BIPAP, SATTING 95-97% MOST TIMES. VSS, AFEBRILE. SR PER MONITOR. SLOW PROGRESS TOWARDS DC GOALS,. WILL CONTINUE TO MONITOR.
[2021-01-10 04:34] LABS: HEMATOCRIT 42.2 % (42.0-52.0); HEMOGLOBIN 14.6 gm/dL (14.0-18.0); MCH 31.2 pg (26.0-34.0); MCHC 34.6 g/dL (28.0-37.0); MCV 90.3 fL (80.0-100.0); PLATELET COUNT 388 thou/uL (150-400); RBC 4.67 mil/uL (4.50-6.00); RDW 12.6 % (10.5-14.5); WBC 20.3 thou/uL (4.0-11.0)
[2021-01-10 04:40] LABS: ALBUMIN 2.5 g/dL (3.4-5.0); CALCIUM 8.4 mg/dL (8.5-10.1); CREATININE 1.2 mg/dL (0.7-1.3); TOTAL BILIRUBIN 1.1 mg/dL (0.2-1.0); TOTAL PROTEIN 5.7 g/dL (6.4-8.2)
[2021-01-10 05:39] LABS: ABSOLUTE NEUTROPHILS 18.9 thou/uL (1.4-8.2); LARGE PLATELETS OCCASIONAL
[2021-01-10 07:42] VITALS: BP 148/88
[2021-01-10 09:03] VITALS: BP 158/90
[2021-01-10 11:40] VITALS: BP 149/87
--- NOTE | 2021-01-10 12:55 | NUR ---
PT IS PROGRESSING TOWARDS DISCHARGE, EVIDENCED BY, APPROPERIATE LEVEL OF OXYGEN SATURATION WITH BIPAP/OPTIFLOW USAGE, WHEN PT DESATS FOR TAKING THE DEVICE OFF, PT IS EASILY ABLE TO RECOUP TO NORMAL OXYGEN SAT LEVEL WITHIN SECONDS. PT ABLE TO REQUEST FOR HELP APPROPERIATELY. PT HAS BEEN DECLINING BLOOD SUGAR CHECKED, RN TALKED ABOUT THE ELEVATED BLOOD SUGAR LEVEL FOR PAST FEW DAYS FOR THE PT, TALKED ABOUT NEED FOR UPKEEPING WITH BLOOD SUGAR LEVEL AND WHY TREATMENT WAS PERTINENT, PROVIDED INFORMATION ABOUT INSULIN AND THE NEED FOR MEDICATION, PT WAS ABLE TO MAKE AN INFORMED DECISION TO NOT TAKE THE MEDS
[2021-01-10 15:40] VITALS: BP 164/83
[2021-01-10 19:40] VITALS: BP 165/89
[2021-01-10 23:20] VITALS: BP 169/91
[2021-01-11 01:05] VITALS: BP 153/88
--- NOTE | 2021-01-11 01:23 | NUR ---
PT TRANSFERRED FROM ICU AT APPROXIMATELT 23:20. ALERT AND ORIENTED X4. BP ELEVATED 183/101. HYDRALAZINE GIVEN. BP NOW DOWN TO 153/88. DENIED PAIN. NO FURTHER BLEEDING NOTED FROM RIGHT ML SITE WAS MENTIONED IN REPORT FROM ICU NS. LUNGS SOUND CLEAR WITH DIMINISHED BASES. UNLABORED ON BIPAP AT 60% FIO2. RESTING QUIETLY PRESENTLY TRYING TO GET TO SLEEP.
[2021-01-11 04:59] VITALS: BP 142/73
--- NOTE | 2021-01-11 05:21 | NUR ---
PT PROGRESSING SLOWLY TOWARDS D/C GOALS. VSS AFEBRILE THIS AM. SATS WNL ON BIPAP 60% THIS AM. SHARP DRAINING LG AMTS CLEAR YELLOW URINE. BED DOWN CALL LIGHT IN REACH. BED ALARM ON.
[2021-01-11 07:55] VITALS: BP 149/89
[2021-01-11 11:13] VITALS: BP 145/85
--- NOTE | 2021-01-11 14:59 | NUR ---
NENO reviewed chart and spoke with nursing and attending physician. Pt was transferred to from ICU. Pt remains in Enhanced Isolation due to COVID. Pt is afebrile and requiring bipap support. Pt is on IV abx and IV steroids. PT/OT evals ordered today. NENO requested 5N clinical rehabilitation liaison to follow pt for consult if appropriate. Pt does not currently have health insurance. NENO received call from pt's brother, Mk, requesting an update. Mk is not listed as a contact for pt. NENO placed call to pt's room to complete SW assessment and receive consent to call Mk. No answer. NENO is following to assist as needed with discharge planning.
[2021-01-11 16:07] VITALS: BP 148/88
[2021-01-11 19:56] VITALS: BP 158/89
[2021-01-12 02:40] VITALS: BP 158/90
[2021-01-12 04:55] LABS: ABSOLUTE NEUTROPHILS 17.7 thou/uL (1.4-8.2); BASOPHILS 0.1 % (0.0-2.0); HEMOGLOBIN 13.5 gm/dL (14.0-18.0); LYMPHOCYTES 1.9 % (24.0-44.0); MCH 30.6 pg (26.0-34.0); MCHC 33.6 g/dL (28.0-37.0); MONOCYTES 4.1 % (1.0-8.0); PLATELET COUNT 327 thou/uL (150-400); POLYS 93.9 % (36.0-66.0); RBC 4.39 mil/uL (4.50-6.00); WBC 18.9 thou/uL (4.0-11.0)
--- NOTE | 2021-01-12 05:46 | NUR ---
PROGRESS PT A/O X4, UP TO BSC WITH WALKER AND 1 TOLERATED WELL DID GET WINDED AND NEEDED TO REST AWHILE TO RECOVER SATS REMAINED STABLE. HAD A LARGE BM AND VOIDED 600 CC'S FIRST VOID NO RESIDUAL NOTED. DENIES PAIN. ON OPTIFLO AT 50L/65% FIO2 TOLERATING WELL, CHANGED TO BIPAP FOR SLEEP AND KEPT ON FOR APPROX. 5 HOURS. REFUSES ACCUCHECKS AND PERIPHERAL LABS DRAWS D/T BRUISING. ORDER FOR STOOL SOFTNERS OBTAINED. NO BLEEDING AT MIDLINE SITE NOTED. CONTINUE POC.
[2021-01-12 05:53] LABS: ALBUMIN 2.4 g/dL (3.4-5.0); CALCIUM 8.3 mg/dL (8.5-10.1); CREATININE 1.2 mg/dL (0.7-1.3); DIRECT BILIRUBIN 0.3 mg/dL (<0.1-0.2); PHOSPHORUS 3.2 mg/dL (2.5-4.9); TOTAL PROTEIN 5.4 g/dL (6.4-8.2)
[2021-01-12 09:07] VITALS: BP 181/92
--- NOTE | 2021-01-12 15:30 | NUR ---
SW reviewed chart and spoke with nursing and attending physician. Pt remains in Enhanced Isolation due to COVID. Pt remains on optiflow. PT/OT ordered to evaluate pt. 5N consulted to evaluate pt for possible admission to inpt acute rehab. SW placed call to pt's room. Line was busy. Awaiting input from AlphonseN at this time. NENO is following to assist as needed with discharge planning.
[2021-01-12 16:50] VITALS: BP 192/107
[2021-01-12 19:44] VITALS: BP 152/85
[2021-01-13 03:06] VITALS: BP 172/88
--- NOTE | 2021-01-13 05:04 | NUR ---
Assumed pt's care beginning of this pm shift. Pt alert and oriented x4. Optiflow day and bipap at HS. Pt took meds per emar. Declined accucheck, so insulin given. Lab draw via DANAY midline. Voiding via urinals. Fall precaution remains in place. Call light within reach. Pt calls out appropriately. Nursing to continue to monitor.
[2021-01-13 05:15] LABS: ABSOLUTE NEUTROPHILS 17.4 thou/uL (1.4-8.2); BASOPHILS 0.2 % (0.0-2.0); HEMATOCRIT 40.2 % (42.0-52.0); HEMOGLOBIN 13.7 gm/dL (14.0-18.0); LYMPHOCYTES 5.1 % (24.0-44.0); MCH 30.8 pg (26.0-34.0); MCHC 34.1 g/dL (28.0-37.0); MCV 90.3 fL (80.0-100.0); MONOCYTES 6.9 % (1.0-8.0); PLATELET COUNT 335 thou/uL (150-400); POLYS 87.8 % (36.0-66.0); RBC 4.45 mil/uL (4.50-6.00); RDW 12.9 % (10.5-14.5); WBC 19.8 thou/uL (4.0-11.0)
[2021-01-13 05:16] LABS: ALBUMIN 2.7 g/dL (3.4-5.0); CALCIUM 8.5 mg/dL (8.5-10.1); CREATININE 1.1 mg/dL (0.7-1.3); DIRECT BILIRUBIN 0.2 mg/dL (<0.1-0.2); PHOSPHORUS 3.3 mg/dL (2.5-4.9); TOTAL BILIRUBIN 0.9 mg/dL (0.2-1.0); TOTAL PROTEIN 5.5 g/dL (6.4-8.2)
[2021-01-13 08:39] VITALS: BP 128/82
--- NOTE | 2021-01-13 12:49 | NUR ---
Nutrition follow up: Pt with continued good intakes on CCHO/chopped diet. Noted with large BM 01/12. On prednisone, IVF, insulin, vit pack. A1c 6.4. blood sugar controlled. BMI >40, extreme class III obesity. Could benefit from nutrition education when appropriate. Remains low nutrition risk at this time.
[2021-01-13 15:32] VITALS: BP 137/78
--- NOTE | 2021-01-13 15:47 | NUR ---
NENO reviewed chart and spoke with nursing and attending physician. Pt remains in Enhanced Isolation due to COVID. Pt is afebrile and on optiflow. 5N is following for possible admission to in acute rehab. NENO spoke with pt via phone. Introduced role of NENO. Pt is alert/orientated x 4. Pt reports he lives at home alone in a condo. 2 steps to enter. All of pt's needs can be met on the ground level. Prior to admission, pt was independent with ADLs. No use of DME. Pt states he recently borrowed a walker from a neighbor. Pt's PCP is Dr. Wilman Blunt. Pt states he is currently between jobs and does not have insurance. NENO sent message to [employer] to check on status of pt's COBRA and/or Medicaid application. Pt gave consent for NENO to call pt's brother, Mk. NENO left voice message for kM. Plan is for pt to eventually discharge home when medically stable. NENO is following to assist as needed with discharge planning.
--- NOTE | 2021-01-13 16:23 | NUR ---
PT HAS REFUSED ACHS WELL INSULIN THIS SHIFT. PHYSICIAN NOTIFIED. PT STATES HE IS "WELL AWARE OF HOW HIS BODY WORKS BECAUSE MY MOM WAS A PHYSICAL THERAPIST", PT DOES NOT LET THIS RN COMPLETE MEDICATION OR BODY MECHANICS EDUCATION. PT USING URINAL AT BEDSIDE, INDEPENDENT FEEDING AND ORAL CARE.
[2021-01-13 20:10] VITALS: BP 152/84
[2021-01-14 02:53] VITALS: BP 143/94
[2021-01-14 07:06] LABS: HEMATOCRIT 38.4 % (42.0-52.0); HEMOGLOBIN 12.6 gm/dL (14.0-18.0); MCH 29.8 pg (26.0-34.0); MCHC 32.9 g/dL (28.0-37.0); MCV 90.8 fL (80.0-100.0); RBC 4.23 mil/uL (4.50-6.00); RDW 12.8 % (10.5-14.5); WBC 14.8 thou/uL (4.0-11.0)
[2021-01-14 07:32] LABS: PLATELET COUNT 230 thou/uL (150-400)
[2021-01-14 07:44] VITALS: BP 13/68
[2021-01-14 11:28] VITALS: BP 119/70
[2021-01-14 12:08] LABS: ABSOLUTE NEUTROPHILS 11.7 thou/uL (1.4-8.2); PLATELET ESTIMATE NORMAL
--- NOTE | 2021-01-14 15:29 | NUR ---
SW reviewed chart and spoke with nursing and attending physician. Pt remains in Enhanced Isolation due to COVID. Pt is afebrile and on optiflow. No weekend discharge planned. 5N is following pt for possible admission to inpt acute rehab. [employer] to assist pt with Medicaid application. SW is following to assist as needed with discharge planning.
[2021-01-14 15:30] VITALS: BP 129/90
--- NOTE | 2021-01-14 17:58 | NUR ---
assumed care of pt at 0700. pt aox4 no acute distress. reports feeling better. unable to tolerate weaning down optiflow. amublating better today - up to bsc w/ sba. non productive cough. no events on telemetry. wcm.
[2021-01-14 20:14] VITALS: BP 140/87
[2021-01-15 03:36] VITALS: BP 154/94
--- NOTE | 2021-01-15 05:39 | NUR ---
PT MAKING SLOW PROGRESS TOWARDS GOALS. PT INITIALLY ON OPTIFLO AT 45L. O2 SATS LOW 90'S BUT TRENDING BELOW 90% BY 2229 AND RATE WAS RETURNED TO 50L. LUNGS DIMINISHED THROUGHOUT.
[2021-01-15 06:28] LABS: HEMATOCRIT 35.6 % (42.0-52.0); HEMOGLOBIN 12.3 gm/dL (14.0-18.0); MCH 31.4 pg (26.0-34.0); MCHC 34.7 g/dL (28.0-37.0); MCV 90.3 fL (80.0-100.0); RBC 3.94 mil/uL (4.50-6.00); RDW 12.6 % (10.5-14.5); WBC 9.4 thou/uL (4.0-11.0)
[2021-01-15 06:33] LABS: CALCIUM 8.1 mg/dL (8.5-10.1); CREATININE 0.7 mg/dL (0.7-1.3); POTASSIUM 3.9 mmol/L (3.5-5.1)
[2021-01-15 07:47] VITALS: BP 134/86
[2021-01-15 15:30] VITALS: BP 123/82
--- NOTE | 2021-01-15 17:22 | NUR ---
assumed care of pt at 0700. pt aox4 no acute distress. continuing signs of improvement. tolerating 50L/40% fio2 on optiflow. calls out appropriately. up w/ sba. bathed w/ staff assistance. good progress toward poc goals.
[2021-01-15 19:56] VITALS: BP 138/73
[2021-01-16 04:30] VITALS: BP 143/98
--- NOTE | 2021-01-16 05:40 | NUR ---
PT ON OPTFLO MUCH OF THE NIGHT WITH 02 AT 50L/39% FIO2. DID ALSO WEAR BIPAP FOR A FEW HOURS (CURRENTLY AT THIS TIME) WITH FIO2 AT 60%. LUNGS DIMINISHED THROUGHOUT. OCCASIONAL MILD COUGH NOTED.
[2021-01-16 06:07] LABS: ABSOLUTE NEUTROPHILS 6.8 thou/uL (1.4-8.2); BASOPHILS 0.7 % (0.0-2.0); EOSINOPHILS 1.6 % (0.0-3.0); HEMATOCRIT 34.1 % (42.0-52.0); HEMOGLOBIN 11.9 gm/dL (14.0-18.0); LYMPHOCYTES 14.1 % (24.0-44.0); MCH 31.6 pg (26.0-34.0); MCV 90.2 fL (80.0-100.0); MONOCYTES 8.1 % (1.0-8.0); PLATELET COUNT 215 thou/uL (150-400); POLYS 75.5 % (36.0-66.0); RBC 3.78 mil/uL (4.50-6.00); RDW 12.7 % (10.5-14.5)
[2021-01-16 06:30] LABS: ALBUMIN 2.3 g/dL (3.4-5.0); CALCIUM 8.2 mg/dL (8.5-10.1); CREATININE 0.7 mg/dL (0.7-1.3); MAGNESIUM 2.1 mg/dL (1.8-2.4); TOTAL BILIRUBIN 1.1 mg/dL (0.2-1.0); TOTAL PROTEIN 5.4 g/dL (6.4-8.2)
[2021-01-16 07:21] VITALS: BP 118/55
[2021-01-16 07:23] VITALS: BP 121/88
--- NOTE | 2021-01-16 14:33 | NUR ---
Pt in bed, moved to chair, tolerated well, pt a and o, no concerns at this time, call light with in reach, watching TV, no distress.
--- NOTE | 2021-01-16 14:42 | NUR ---
pt declines AC/HS and insulin
[2021-01-16 15:13] VITALS: BP 113/55
[2021-01-16 15:38] VITALS: BP 143/91
--- NOTE | 2021-01-16 18:50 | NUR ---
PT A&OX4, CONTINUES TO REFUSE ACHS. DENIES NEEDS OR CONCERNS AT THIS TIME.
[2021-01-16 20:35] VITALS: BP 140/80
[2021-01-17 05:53] VITALS: BP 129/72
--- NOTE | 2021-01-17 06:38 | NUR ---
conitnues on the optiflo at 40%. denies pain. conitnues to refuse the blood glucose checks. He has been awake most of the night. He is pleasant and cooperative. no discharge concerns voiced.
[2021-01-17 07:57] VITALS: BP 122/69
--- NOTE | 2021-01-17 14:51 | NUR ---
SW reviewed chart and spoke with nursing and attending physician. Pt remains in Enhanced Isolation due to COVID. Pt is afebrile and requiring optiflow. PT/OT is working with pt. 5N is following for possible admission to inpt acute rehab if needed. SW spoke with pt via phone. Pt states he completed the Medicaid application last week with [employer]. SW is following to assist as needed [facility] discharge planning.
[2021-01-17 15:43] VITALS: BP 128/72
--- NOTE | 2021-01-17 17:43 | NUR ---
PT PLEASANT AND ALERT AND ORIENTED X4. PT ON OPTIFLOW 45L AND 40 FI02. PT DESAT'S WITH MOVEMENT. PT REFUSES ACCUCHECKS AND INSULIN. PT HAS BRUISING ON ARMS BUT SKIN IS INTACT. INDEPENDANT TO THE BSC AND USES URINAL. PT DENIES ANY NEEDS AT THE MOMENT AND WILL CONTINUE TO MONITOR.
[2021-01-17 19:37] VITALS: BP 149/87
[2021-01-18 05:57] VITALS: BP 133/98
[2021-01-18 06:01] VITALS: BP 133/98
--- NOTE | 2021-01-18 06:25 | NUR ---
Patient making progress towards outcome goals, stayed on optiflow at 45L/40% and oxygen saturation above 90%. Transfering well from bed to BSC. Care plan updated. Refused fingersticks and insulin.
[2021-01-18 07:31] VITALS: BP 133/85
--- NOTE | 2021-01-18 15:15 | NUR ---
NENO reviewed chart and spoke with nursing and attending physician. Pt remains in Enhanced Isolation due to COVID. Pt is afebrile and requiring optiflow. Pt is on IV steroids and IV lasix. NENO discussed case with 5N liaison. 5N consult to be ordered. [employer] has applied for Medicaid on pt's behalf. NENO is following to assist as needed with discharge planning.
[2021-01-18 15:39] VITALS: BP 112/76
--- NOTE | 2021-01-18 15:49 | NUR ---
PT IS PROGRESSING TOWARDS POC. OPTIFLOW DECREAASE DOEN TO 35L, 40%. UP TO BSC INDEPENDENTLY, USES URINAL. WORKED WITH PT TODAY. PT CONTINUE TO REFUSE ACC CHECKS. ENHANCED PRECAUTIONS IN PLACE, WILL CONTINUE TO MONITOR.
[2021-01-18 19:38] VITALS: BP 126/84
--- NOTE | 2021-01-19 02:57 | NUR ---
PROGRESS PT A/O X4, UP AD JOSE ANTONIO. VSS, LUNGS SOUNDS CLEAR IN UPPER LOBES AND DIMINISHED IN BASES. VOIDING LARGE AMOUNTS OF CLEAR YELLOW URINE. TELEMETRY INTACT READING SR. ON BIPAP AT MIDNIGHT TOLERATING WELL. PLAN IS TO DC TO REHAB WHEN O2 TITRATED TO 10 LITERS OR LESS.
[2021-01-19 04:04] VITALS: BP 128/49
[2021-01-19 07:47] VITALS: BP 122/76
--- NOTE | 2021-01-19 13:45 | NUR ---
PT IS PROGRESSING TOWARDS CARE. CURRENTLY ON 3L OF OXYGEN, SOB WITH EXERTION AND ANY ACTIVITY. UP TO BSC COMMODE AND USES THE URINAL. CONTINUE TO BE IN ENHACED ISOLATION. ANTICIPATING FOR D/C SOON. DENIES ANY NEEDS EARLE, WILL CONTINUE TO MONITOR.
--- NOTE | 2021-01-19 15:33 | NUR ---
Case discussed with the care team. Possible dc home tomorrow with home o2. Therapy and rehab have evaluated and his is up ad yesenia in his room and indep with adl's. He is needing increased time for activity due to endurance and shortness of air. O2 sats below 88% with activity. Referral called and faxed to [facility]. They will bring a portable o2 tank and need a script faxed day of dc. Pt is medicaid pending. Pt's mother called and requested 24hr notice of dc. Notice provided and voice mail left on her [place] number. DC plan discussed with the pt via phone. He is also texting his parents about dc tomorrow and they are trying to drive in town to stay with him and help out for a bit. Pt is hoping a good friend of his can take him home tomorrow. He will need scripts vouched per the [facility] outpt pharmacy and o2 in place prior to dc tomorrow. The pt does feel he is improving. Encouragement given to walk to the bath room and walk each time staff is in his room as well as set up in the chair to help with endurance in anticipation of going home. Acute rehab is not recommended at this time. Will ask Chinmay about HH RN satya visits at mt.
[2021-01-19 16:50] VITALS: BP 127/77
[2021-01-19 19:07] VITALS: BP 130/81
[2021-01-20] VITALS (8 sets, daily range): BP systolic 117–142; BP diastolic 57–92
--- NOTE | 2021-01-20 03:03 | NUR ---
PROGRESS PT A/O X4 UP AD JOSE ANTONIO ON 2 LITERS O2 COVID TREATMENT COMPLETED. VOIDING QS, DENIES PAIN ON BIPAP OVERNIGHT TOLERATED WELL. POSSIBLE DC HOME TODAY OR SUNDAY.
--- NOTE | 2021-01-20 08:00 | NUR ---
PT HAD BEEN A LOW FALL RISK..ENTERED ROOM AND FOUND PATIENT KNEELING ON SIDE OF BED..STATED HE WAS SOA WHEN OOB..HE HAD BEEN EXERCISING IN ROOM ON AND OFF SINCE 430 INDEOENDENTLY..HE STATED HE HAD BEEN IN CHAIR AND FELT SHORT OF AIR AND GOT TANGLED IN HIS SAT MONITOR TUBING AND O2 TUBING AND SLIDE AGAINST THE WALL AND DOWN TO FLOOR TO BOTTOM. HE CRAWLED OVER TO CALL LIGHT AND BRIDGETTE ANSWERED HIS LIGHT AND HE TOLD HER HE HAD NOT FALLEN BUT WAS JUST CATCHING HIS BREATH..WHEN I ENTERED ROOM HE STATED HE HAD LOWERED HIMSELF TO FLOOR AND HAD CRAWLED TO BED..
--- NOTE | 2021-01-20 10:07 | NUR ---
Nutrition follow up: Pt possible d/c today or tomorrow. Noted with 10# wt loss since last week, despite 100% intakes at meals. Noted started on diuretics. Remains on CCHO/chopped diet. Remains on covid isolation. Attempted phone call with pt r/t need/desire for nutrition education for weight managment, no answer x 2. Wt loss favorable r/t obese status. BMI 39. Remains low nutrition risk with good intakes at meals and no chewing/swallowing issues on current diet.
--- NOTE | 2021-01-20 14:00 | NUR ---
NENO reviewed chart and spoke with nursing and attending physician. Pt remains in Enhanced Isolation due to COVID. Pt is afebrile and on continuous O2. Discharge home is anticipated for tomorrow. [facility] has delivered a portable O2 tank for pt to take home. Repeat rest/exercise oximetry to be ordered prior to discharge. NENO spoke with pt via phone to discuss discharge plan. Pt is aware and in agreement with discharge plan. Pt's parents are not driving to from [place] as planned. They will be in town in a few weeks. Pt states he has friends that are able and willing to help him if needed. Pt will have meds filled at [facility] and may need transportation home. Pt has a Medicaid application pending. NENO updated [facility] liaison. NENO is following to assist as needed with discharge planning.
[2021-01-21 03:00] VITALS: BP 145/88
--- NOTE | 2021-01-21 06:07 | NUR ---
PT MAKING PROGRESS TOWARDS GOALS. PT ON O2 AT 6L PER NC OVERNIGHT. DID WEAR BIPAP FOR A FEW HOURS WILE ASLEEP. PT ABLE TO AMBULATE TO TOILET AND BACK WITHOUT SIGNIFICANT SOA. DOES CALL APPROPRIATELY FOR ANY OOB NEEDS. LUNGS DIMINISHED BUT ABLE TO AUSCULTATE SOME AIR MOVEMENT.
[2021-01-21 07:25] VITALS: BP 143/81
--- NOTE | 2021-01-21 14:25 | NUR ---
NENO reviewed chart and spoke with nursing and attending physician. Enhanced Isolation precautions have been discontinued. Pt is afebrile and on 3-6L of O2. CTA of the chest ordered today to r/o PE. No weekend discharge planned. SW left voice message on pt's phone to provide update and discuss discharge plan. [facility] is able to provide [facility] visits. NENO updated [facility] liaison regarding pt's discharge. Pt's meds to be vouched at [facility]. NENO is following to assist as needed with discharge planning.
[2021-01-21 16:23] VITALS: BP 117/65
[2021-01-21 19:44] VITALS: BP 135/83
[2021-01-22 04:21] VITALS: BP 130/82
--- NOTE | 2021-01-22 06:27 | NUR ---
PT STAYED BIPAP FOR APPROX 5 HOURS OVERNIGHT. VSS. FALL PRECAUTIONS DUE TO UNWITNESSED FALL ON 01/21. PT UP TO BATHROOM WITH SBA. ISOLATION PRECAUTIONS HAVE BEEN DC'D. PT HAS NO COMPLAINTS. CALL LIGHT WITHIN REACH. PT REQUEST/REFUSING ACCU CHECKS.
[2021-01-22 07:42] VITALS: BP 142/82
--- NOTE | 2021-01-22 12:21 | NUR ---
WAS NOTIFIED BY PT'S NURSE DEDRA THAT DR. CAMPOS IS GOING TO DC PT TOMORROW AN WILL NEED HOME O2 SET UP. SPOKE WITH KARTIK AT [facility] HE SAID HE ALREADY DELIVERED A TANK TO PT'S ROOM. HE DIDN'T KNOW IF THE OFFICE RECEIVED THE REST/EXERCISE SAT RESULT SO I FAXED IT TO THEM AND RECEIVED CONFIRMATION. i, LET DEDRA RN KNOW AND HE WILL PASS IT ON IN REPORT. PT TO NOTIFY [facility] TIME THAT THEY WILL ARRIVE HOME SO THEY CAN MEET PT TO SET UP HOME O2 CALL [facility] AT [phone].
--- NOTE | 2021-01-22 15:15 | NUR ---
assumed care of pt at 0700. pt alert and oriented x4 no acute distress. requiring 3L to maintain spo2. up w/ sba. bathed with stand by assistance. anticipate d/c 1-2 days with home O2.
[2021-01-22 15:32] VITALS: BP 128/75
[2021-01-22 19:32] VITALS: BP 142/80
[2021-01-23 05:12] VITALS: BP 126/84
--- NOTE | 2021-01-23 06:15 | NUR ---
VSS OVERNIGHT AND PT WITHOUT COMPLAINTS. BIPAP IN USE FOR APPROX 5 HOURS. PT STATES HE IS READY TO DISCHARGE, WITH POSSIBLE PLACEMENT. OUT OF ISOLATION AND PT IS STILL REFUSING ACCU CHECKS.
[2021-01-23 07:33] VITALS: BP 137/83
[2021-01-23 08:30] VITALS: BP 134/86
[2021-01-23 15:35] VITALS: BP 134/86
--- NOTE | 2021-01-23 18:10 | NUR ---
RN ASSUMED PT'S CARE AT O700AM, PT IS A&OX4, PT IS ON O2 3L/MIN/NC, PT'S VS ARE STABLE, PT GETS UP TO BATH ROOM WITHOUT ASSIST, PT DENIES SOB WITH ACTIVITIES, PT MAY DC TO HOME TOMORROW.
[2021-01-23 20:00] VITALS: BP 138/84
[2021-01-23 23:22] LABS: HEMATOCRIT 33.6 % (42.0-52.0); HEMOGLOBIN 11.4 gm/dL (14.0-18.0); MCH 31.4 pg (26.0-34.0); MCHC 34.1 g/dL (28.0-37.0); MCV 92.2 fL (80.0-100.0); RBC 3.64 mil/uL (4.50-6.00); WBC 10.1 thou/uL (4.0-11.0)
[2021-01-23 23:26] LABS: CALCIUM 8.3 mg/dL (8.5-10.1); CREATININE 0.8 mg/dL (0.7-1.3); POTASSIUM 3.7 mmol/L (3.5-5.1)
[2021-01-24 05:05] VITALS: BP 135/82
[2021-01-24 07:24] VITALS: BP 139/95
--- NOTE | 2021-01-24 07:53 | NUR ---
PT UP TO BATHROOM WITH SBA. 02 SATURATION DROPS WHEN AMBULATING BUT RECOVERS QUICKLY. PT READY TO DC HOME, PT STATES HIS SISTER AND BROTHER IN LAW ARE COMING TO STAY AND TAKE CARE OF HIM DURING HIS RECOVERY. PT CAN USE CALL LIGHT FOR NEEDS.
[2021-01-24 09:13] VITALS: BP 139/95
--- NOTE | 2021-01-24 11:59 | NUR ---
DISCHARGE NOTE: NENO reviewed chart and spoke with nursing and attending physician. Pt is medically stable for discharge home today. Rest/exercise oximetry completed this morning and pt requires 3L at rest and 6L with activity. NENO faxed testing and script to [facility]. Notified liaison of pt's discharge. Portable O2 has been delivered to the hospital already. NENO notified [facility] liaison of pt's discharge. HH to provide satya HH visits. NENO faxed pt's face sheet to [facility] and spoke with Ebonie. Pt's scripts to be sent to the pharmacy. Case Mgmt to vouch. NENO spoke with pt via phone to discuss discharge plan. Pt states his sister and brother in law are driving to from [place] and will be in town around [phone] today. They would be able to pick pt up at or after that time. NENO discussed need for pt to contact [facility] when discharged to coordinate the delivery of the home O2 equipment. Pt verbalized understanding. Contact info for [facility] and HH placed in pt's discharge summary. NENO also included info for [employer] for pt to follow up after discharge regarding his Medicaid application. Awaiting final discharge ppwk at this time. NENO is following to finalize discharge.
[2021-01-24] MEDS ORDERED: ZINC SULFATE50 MG PO (13:22)
[2021-01-24] MEDS ORDERED: PREDNISONE 20 M20 M1 PO (13:22)
[2021-01-24] MEDS ORDERED: COLACE 100 MG100 MG PO (13:22)
[2021-01-24] MEDS ORDERED: PEPCID20 MG PO (13:22)
[2021-01-24] MEDS ORDERED: ACEROLA C500 MG PO (13:22)
[2021-01-24] MEDS ORDERED: TESSALON PERLE100 MG PO (13:22)
[2021-01-24] MEDS ORDERED: IPRAT-ALBUT 0.5-3 ML INH (13:22)
[2021-01-24] MEDS ORDERED: PULMICORT0.5 MG/21 INH (13:22)
[2021-01-24] MEDS ORDERED: VITAMIN D325 MC2 PO (13:22)
[2021-01-24] MEDS ORDERED: MELATONIN5 M1 PO (13:22)
[2021-01-24] MEDS ORDERED: METFORMIN HCL500 M3 PO (13:24)
[2021-01-24] MEDS ORDERED: OTHER MISCELL (13:28)
[2021-01-24] MEDS ORDERED: NEBULIZER MISCELL (14:40)
[2021-01-24] MEDS ORDERED: PROAIR HFA8.5 GM INH (15:18)
--- NOTE | 2021-01-24 19:06 | NUR ---
RN ASSUMED PT'S CARE AT 0700-1800PM, PT IS A&OX4, PT'S SOB AND WEAKNESS HAVE IMPROVED, PT'S VS AND O2SAT ARE STABLE, RN RECEIVED ORDER TO DC PT TO HOME WITH HOME HEALTH, PT UNDERSTANDS DC TEACHING WELL , INCLUDING BS MONITOR AND O2 MANAGEMENT, PT HAS HOSPITAL 'S MEDICATIONS TO TAKE HOME, PT'S FAMILY UNION REPRESENTATIVE PT AT 1800PM.
== END 2021-01-24 18:00 | disposition home health service (06) | DRG 871 ==
LOC: ER 10:09 → EROBS 12:20 → ICU 12-31 18:04 → 3W 01-10 22:55
PROVIDERS: Emergency Medicine; Hospitalist; Internal Medicine; Nurse Practitioner; Nurse Practitioner Family; Pediatrics; Specialist; ADMIT Internal Medicine; ATTEND Internal Medicine
PROC: 5A0935A Assistance with Respiratory Ventilation, Less than 24 Consecutive Hours, High Flow/Velocity Cannula (ICD-10-PCS; principal; 2020-12-30)
PROC: XW033E5 Introduction of Remdesivir Anti-infective into Peripheral Vein, Percutaneous Approach, New Technology Group 5 (ICD-10-PCS; principal; 2020-12-30)
PROC: 5A09357 Assistance with Respiratory Ventilation, Less than 24 Consecutive Hours, Continuous Positive Airway Pressure (ICD-10-PCS; 2020-12-31)
PROC: 5A0935A Assistance with Respiratory Ventilation, Less than 24 Consecutive Hours, High Flow/Velocity Cannula (ICD-10-PCS; 2021-01-01)
PROC: 5A09357 Assistance with Respiratory Ventilation, Less than 24 Consecutive Hours, Continuous Positive Airway Pressure (ICD-10-PCS; 2021-01-01)
PROC: 05HD33Z Insertion of Infusion Device into Right Cephalic Vein, Percutaneous Approach (ICD-10-PCS; 2021-01-01)
PROC: 5A09357 Assistance with Respiratory Ventilation, Less than 24 Consecutive Hours, Continuous Positive Airway Pressure (ICD-10-PCS; 2021-01-02)
PROC: 5A0935A Assistance with Respiratory Ventilation, Less than 24 Consecutive Hours, High Flow/Velocity Cannula (ICD-10-PCS; 2021-01-02)
PROC: 5A0935A Assistance with Respiratory Ventilation, Less than 24 Consecutive Hours, High Flow/Velocity Cannula (ICD-10-PCS; 2021-01-03)
PROC: 5A09357 Assistance with Respiratory Ventilation, Less than 24 Consecutive Hours, Continuous Positive Airway Pressure (ICD-10-PCS; 2021-01-03)
PROC: 5A09457 Assistance with Respiratory Ventilation, 24-96 Consecutive Hours, Continuous Positive Airway Pressure (ICD-10-PCS; 2021-01-04)
PROC: 5A0935A Assistance with Respiratory Ventilation, Less than 24 Consecutive Hours, High Flow/Velocity Cannula (ICD-10-PCS; 2021-01-04)
PROC: 5A0935A Assistance with Respiratory Ventilation, Less than 24 Consecutive Hours, High Flow/Velocity Cannula (ICD-10-PCS; 2021-01-05)
PROC: 5A09357 Assistance with Respiratory Ventilation, Less than 24 Consecutive Hours, Continuous Positive Airway Pressure (ICD-10-PCS; 2021-01-05)
PROC: 5A0935A Assistance with Respiratory Ventilation, Less than 24 Consecutive Hours, High Flow/Velocity Cannula (ICD-10-PCS; 2021-01-06)
PROC: 5A09357 Assistance with Respiratory Ventilation, Less than 24 Consecutive Hours, Continuous Positive Airway Pressure (ICD-10-PCS; 2021-01-06)
PROC: 5A09357 Assistance with Respiratory Ventilation, Less than 24 Consecutive Hours, Continuous Positive Airway Pressure (ICD-10-PCS; 2021-01-07)
PROC: 5A0935A Assistance with Respiratory Ventilation, Less than 24 Consecutive Hours, High Flow/Velocity Cannula (ICD-10-PCS; 2021-01-07)
PROC: 5A0935A Assistance with Respiratory Ventilation, Less than 24 Consecutive Hours, High Flow/Velocity Cannula (ICD-10-PCS; 2021-01-08)
PROC: 5A09357 Assistance with Respiratory Ventilation, Less than 24 Consecutive Hours, Continuous Positive Airway Pressure (ICD-10-PCS; 2021-01-10)
PROC: 5A0935A Assistance with Respiratory Ventilation, Less than 24 Consecutive Hours, High Flow/Velocity Cannula (ICD-10-PCS; 2021-01-10)
PROC: 5A0935A Assistance with Respiratory Ventilation, Less than 24 Consecutive Hours, High Flow/Velocity Cannula (ICD-10-PCS; 2021-01-11)
PROC: 5A09357 Assistance with Respiratory Ventilation, Less than 24 Consecutive Hours, Continuous Positive Airway Pressure (ICD-10-PCS; 2021-01-11)
PROC: 5A0935A Assistance with Respiratory Ventilation, Less than 24 Consecutive Hours, High Flow/Velocity Cannula (ICD-10-PCS; 2021-01-12)
PROC: 5A09357 Assistance with Respiratory Ventilation, Less than 24 Consecutive Hours, Continuous Positive Airway Pressure (ICD-10-PCS; 2021-01-12)
PROC: 5A0935A Assistance with Respiratory Ventilation, Less than 24 Consecutive Hours, High Flow/Velocity Cannula (ICD-10-PCS; 2021-01-13)
PROC: 5A09357 Assistance with Respiratory Ventilation, Less than 24 Consecutive Hours, Continuous Positive Airway Pressure (ICD-10-PCS; 2021-01-13)
PROC: 5A0935A Assistance with Respiratory Ventilation, Less than 24 Consecutive Hours, High Flow/Velocity Cannula (ICD-10-PCS; 2021-01-14)
PROC: 5A0935A Assistance with Respiratory Ventilation, Less than 24 Consecutive Hours, High Flow/Velocity Cannula (ICD-10-PCS; 2021-01-15)
PROC: 5A09357 Assistance with Respiratory Ventilation, Less than 24 Consecutive Hours, Continuous Positive Airway Pressure (ICD-10-PCS; 2021-01-16)
PROC: 5A0945A Assistance with Respiratory Ventilation, 24-96 Consecutive Hours, High Flow/Velocity Cannula (ICD-10-PCS; 2021-01-16)
PROC: 5A0935A Assistance with Respiratory Ventilation, Less than 24 Consecutive Hours, High Flow/Velocity Cannula (ICD-10-PCS; 2021-01-18)
PROC: 5A09357 Assistance with Respiratory Ventilation, Less than 24 Consecutive Hours, Continuous Positive Airway Pressure (ICD-10-PCS; 2021-01-19)
PROC: 5A0935A Assistance with Respiratory Ventilation, Less than 24 Consecutive Hours, High Flow/Velocity Cannula (ICD-10-PCS; 2021-01-19)
PROC: 5A0935A Assistance with Respiratory Ventilation, Less than 24 Consecutive Hours, High Flow/Velocity Cannula (ICD-10-PCS; 2021-01-20)
PROC: 5A09357 Assistance with Respiratory Ventilation, Less than 24 Consecutive Hours, Continuous Positive Airway Pressure (ICD-10-PCS; 2021-01-20)
PROC: 5A09357 Assistance with Respiratory Ventilation, Less than 24 Consecutive Hours, Continuous Positive Airway Pressure (ICD-10-PCS; 2021-01-21)
PROC: 5A0935A Assistance with Respiratory Ventilation, Less than 24 Consecutive Hours, High Flow/Velocity Cannula (ICD-10-PCS; 2021-01-21)
PROC: 5A09357 Assistance with Respiratory Ventilation, Less than 24 Consecutive Hours, Continuous Positive Airway Pressure (ICD-10-PCS; 2021-01-22)
PROC: 5A0935A Assistance with Respiratory Ventilation, Less than 24 Consecutive Hours, High Flow/Velocity Cannula (ICD-10-PCS; 2021-01-23)
PROC: 5A09357 Assistance with Respiratory Ventilation, Less than 24 Consecutive Hours, Continuous Positive Airway Pressure (ICD-10-PCS; 2021-01-23)
DX: A41.9 Sepsis, unspecified organism (principal); U07.1 COVID-19; J12.82 Pneumonia due to coronavirus disease 2019; J80 Acute respiratory distress syndrome; G92 Toxic encephalopathy; R65.20 Severe sepsis without septic shock; E66.01 Morbid (severe) obesity due to excess calories; R74.01 Elevation of levels of liver transaminase levels; I10 Essential (primary) hypertension; R41.0 Disorientation, unspecified; Z79.82 Long term (current) use of aspirin; Z90.49 Acquired absence of other specified parts of digestive tract; Z88.7 Allergy status to serum and vaccine; Z86.73 Personal history of transient ischemic attack (TIA), and cerebral infarction without residual deficits; Z68.38 Body mass index [BMI] 38.0-38.9, adult; Z79.899 Other long term (current) drug therapy
CPT/HCPCS: 10078; 10779; 10879; 27000

== ENCOUNTER → 2021-03-21 | Outpatient (CLI) | payer OTHER ==
[~2021-03-21] MED LIST changes: +ACEROLA C500 MG PO; +COLACE 100 MG100 MG PO; +IPRAT-ALBUT 0.5-3 ML INH; +MELATONIN5 M1 PO; +METFORMIN HCL500 M3 PO; +NEBULIZER MISCELL; +OTHER MISCELL; +PEPCID20 MG PO; +PREDNISONE 20 M20 M1 PO; +PROAIR HFA8.5 GM INH; +PULMICORT0.5 MG/21 INH; +TESSALON PERLE100 MG PO; +VITAMIN D325 MC2 PO; +ZINC SULFATE50 MG PO
== END ==
LOC: RAD 11:16
PROVIDERS: ATTEND Internal Medicine Pulmonary Disease
DX: R06.02 Shortness of breath (principal); J98.11 Atelectasis